=== PATIENT | female | born 1950 | race Caucasian/White ===

== ENCOUNTER 2019-04-24 18:02 | Inpatient (IN) | payer MEDICAID ==
[~2019-04-24] VITALS: Ht 162.6 cm; Wt 65.8 kg
[2019-04-24 18:17] VITALS: BP 129/80
--- NOTE | 2019-04-24 18:20 | NUR ---
PT TRIAGED, SENT BACK TO LOBBY AWAITING FOR BED
--- NOTE | 2019-04-24 18:34 | NUR ---
PT RETURNED FROM CT VIA W/C TO LOBBY
[2019-04-24 19:00] LABS: BASOPHILS # (AUTO) 0.1 K/uL (0.00-0.22); BASOPHILS % (AUTO) 0.9 % (0.0-2.0); EOSINOPHILS # (AUTO) 0.1 K/uL (0-0.4); HEMATOCRIT 36.6 % (36-48); HEMOGLOBIN 12.3 g/dL (12.0-16.0); LYMPHOCYTES # (AUTO) 1.8 K/uL (2.5-16.5); LYMPHOCYTES % (AUTO) 27.4 % (20.5-51.1); MEAN CORPUSCULAR HEMOGLOBIN 29 pg (27-31); MEAN CORPUSCULAR HGB CONC 34 g/dL (33-37); MEAN CORPUSCULAR VOLUME 87.1 fL (80-94); MONOCYTES # (AUTO) 0.4 K/uL (0.8-1.0); MONOCYTES % (AUTO) 5.7 % (1.7-9.3); NEUTROPHILS # (AUTO) 4.2 K/uL (1.8-7.7); PLATELET COUNT (AUTO) 262 K/uL (140-450); RED CELL DISTRIBUTION WIDTH 13.3 % (11.6-13.7); WHITE BLOOD COUNT (AUTO) 6.6 K/uL (4.8-10.8)
--- NOTE | 2019-04-24 19:11 | NUR ---
PT AMBULATED TO BED 7 WITH FAMILY MEMBER
[2019-04-24 19:15] LABS: ALBUMIN 3.8 g/dL (3.4-5.0); ANION GAP 7.8 (8-16); CARBON DIOXIDE 30.2 mmol/L (21-32); CREATININE 0.8 mg/dL (0.6-1.3); TOTAL BILIRUBIN 0.3 mg/dL (0.0-1.0)
[2019-04-24 19:21] LABS: APPEARANCE,URINE CLEAR (CLEAR); BILIRUBIN,URINE NEGATIVE (NEGATIVE); BLOOD, URINE NEGATIVE (NEGATIVE); COLOR,URINE YELLOW (YELLOW); LEUKOCYTE ESTERASE ,URINE NEGATIVE (NEGATIVE); NITRITE, URINE NEGATIVE (NEGATIVE); PH,URINE 5.5 (5.0-9.0); UGLUCOSE NEGATIVE (NEGATIVE)
[2019-04-24] MEDS ORDERED: DICYCLOMINE HCL LIQUID 20 MG, ALUMINUM HYD/MAG/SIMETHICONE 30 ML, LIDOCAINE VISCOUS 2% ... PO ONE ×3 (19:30)
[2019-04-24] MEDS ORDERED: ACETAMINOPHEN 325 MG TAB PO ONE (19:30)
[2019-04-24] MEDS ORDERED: ONDANSETRON 4 MG ODT PO ONE (19:30)
[2019-04-24] MEDS ORDERED: DICYCLOMINE HCL LIQUID 10 MG/5 ML UDC ONE (19:52)
[2019-04-24] MEDS ORDERED: ALUMINUM HYD/MAG/SIMETHICONE 30 ML UDC ONE (19:52)
[2019-04-24] MEDS ORDERED: LIDOCAINE VISCOUS 2% 20 ML UDC ONE (19:52)
--- NOTE | 2019-04-24 20:00 | NUR ---
US AT BEDSIDE.
--- NOTE | 2019-04-24 20:00 | NUR ---
69 Y/O FEMALE C/O EPIGASTRIC PAIN X 1730 TODAY. RATES PAIN 8/0 AND DESCRIBES IT BURNING. ABD IS SOFT, ROUND, ACTIVE BS, TENDERNESS ON EPIGASTRIC REGION. VSS. A&OX4. STEADY GAIT. NO DISTRESS NOTED. NKA. PMH: DM, HTN.
[2019-04-24] MEDS ORDERED: NACL 0.9% 1,000 ML IV ONE (21:00)
[2019-04-24] MEDS ORDERED: metroNIDAZOLE 500 MG/NS PREMIX 100 ML IV ONE (21:00)
[2019-04-24] MEDS ORDERED: NACL 0.9% 1,000 ML IV SCH (21:11)
[2019-04-24] MEDS ORDERED: MORPHINE SULFATE 2 MG/ML SYR IVP PRN (21:15)
[2019-04-24] MEDS ORDERED: ACETAMINOPHEN 325 MG TAB PO PRN (21:15)
[2019-04-24] MEDS ORDERED: ONDANSETRON 4 MG/2 ML VIAL IM/IVP PRN (21:15)
[2019-04-24] MEDS ORDERED: DOCUSATE SODIUM 100 MG GELCAP PO PRN (21:15)
[2019-04-24] MEDS ORDERED: INSULIN LISPRO SLIDING SCALE 100 UNITS/ML VIAL SUBQ PRN (21:20)
[2019-04-24] MEDS ORDERED: DEXTROSE 50% 50 ML SYR IVP PRN (21:20)
[2019-04-24] MEDS ORDERED: cefTRIAXone 1,000 MG VIAL ONE (21:23)
[2019-04-24] MEDS ORDERED: METF1000 PO (21:27)
--- NOTE | 2019-04-24 21:56 | NUR ---
XR AT BEDSIDE.
[2019-04-24 22:20] VITALS: BP 118/61
--- NOTE | 2019-04-24 22:20 | NUR ---
Patient will be admitted to care of DR. GALLEGOS. Admited to M/S. Will go to room 105A. Belongings list completed. Report to TANYA NATHAN.
--- NOTE | 2019-04-24 22:20 | NUR ---
Admitted from ER TO MED SURGICAL UNIT, with chief complaint of ABDOMINAL PAIN THAT STARTED YESTERDAY 5/, ON AND OFF. 69 y/o ,Female, Cooperative, AWAKE, A/OX4, RESPIRATION EVEN AND UNLABORED. IVPB OF FLAGYL INFUSING, RIGHT HAND G20. ABLE TO AMBULATE BY HERSELF. HEAD TO TOE ASSESSMENT DONE WITH TANYA SANTIZO SKIN IS INTACT. PLAN OF CARE FOR THE SHIFT DISCUSSED. VERBALIZED UNDERSTANDING. NPO EXCEPT MEDS. DENIES PAIN 0/10.oriented to call light, bed, phone,television, bathroom, smoking policy,visiting hours, procedures, ID bracelet on. Belongings list checked.
--- NOTE | 2019-04-24 22:21 | NUR ---
Admitted from , with chief complaint of ABDOMINAL PAIN , 69 y/o ,Female, , oriented to call light, bed, phone,television, bathroom, smoking policy, visiting hours, procedures, ID bracelet on. Belongings list checked. Addendum: 04/24/19 at 2345 by Marilou Ceballos RN PLEASE DISREGARD PREVIOUS ENTRY. Patient's Plan of Care was discussed and reviewed with LEOBARDO:VENITA. PT IS STABLE. DENIES ANY PAIN AT THIS TIME. DX:EARLY CHOLECYSTITIS C/C ABD PAIN WHICH STARTED YESTERDAY 04/22. CALL LIGHT IS WITHIN REACH. WILL CONTINUE TO MONITOR.
[2019-04-24 22:39] LABS: PROTHROMBIN TIME 10.3 secs (10.8-13.4)
[2019-04-24 23:15] LABS: FREE T4 (FREE THYROXINE) 1.23 ng/dL (0.76-1.46); MAGNESIUM 1.6 mg/dL (1.8-2.4); PHOSPHORUS 3.9 mg/dL (2.5-4.9); THYROID STIMULATING HORMONE 1.62 uIU/mL (0.34-3.74)
[2019-04-24] MEDS: DEXT 5% / NACL 0.9% 500 ML IV SCH (23:18)
--- NOTE | 2019-04-25 | NUR ---
SLEEPING COMFORTABLY IN BED.
--- NOTE | 2019-04-25 02:00 | NUR ---
STILL SLEEPING COMFORTABLY IN BED.
[2019-04-25 04:00] VITALS: BP 114/60
--- NOTE | 2019-04-25 04:00 | NUR ---
NO COMPLAINT OF PAIN, VS STABLE.
[2019-04-25] MEDS ORDERED: cefTRIAXone 1,000 MG VIAL ONE (05:11)
--- NOTE | 2019-04-25 06:00 | NUR ---
ASSISTED TO GO TO BR TO VOID, BACK TO BED AFTER VOIDING. HUNGARIAN READING REGARDING LAP CHOLECYSTECTOMY GIVE TO PATIENT TO READ.
[2019-04-25] MEDS: metroNIDAZOLE 500 MG/NS PREMIX 100 ML IV SCH ×2 (06:09→13:25)
[2019-04-25] MEDS: DEXT 5% / NACL 0.9% 500 ML IV SCH (06:35)
[2019-04-25] MEDS ORDERED: DEXT 5% /NACL 0.9% 1,000 ML IV SCH (07:07)
--- NOTE | 2019-04-25 07:14 | NUR ---
CONDITION REMAIN STABLE. ENDORSED TO AM SHIFT NURSE FOR CONTINUITY OF CARE.
--- NOTE | 2019-04-25 07:15 | NUR ---
RECEIVED PATIENT FROM CONCRETE POURING SUPERVISOR RETAIL ASSISTANT MANAGERVENITA [place]. PATIENT IS AWAKE, SWAZI SPEAKING ONLY. RESPIRATIONS EVEN AND UNLABORED, ROOM AIR. MED SURG. VISIBLE CHEST RISE NOTED. DENIES CHEST PAIN. ABDOMEN SOFT, AND NONTENDER. SKIN WARM, DRY, AND INTACT. IV IN THE RIGHT AC G20 RUNNING NS AT 60 ML/HR. IV PATENT AND FLUSHING WELL. PATIENT IS AMBULATORY. HAS SCHEDULED LAP GRICELDA AT 1525. HIDA SCAN IS ALSO SCHEDULED. BED IN LOW POSITION. CALL LIGHT IS WITHIN REACH. WILL CONTINUE TO MONITOR.
[2019-04-25 07:25] LABS: BASOPHILS % (AUTO) 0.6 % (0.0-2.0); EOSINOPHILS # (AUTO) 0.1 K/uL (0-0.4); EOSINOPHILS % (AUTO) 1.7 % (0.0-4.0); HEMATOCRIT 31.4 % (36-48); HEMOGLOBIN 10.6 g/dL (12.0-16.0); LYMPHOCYTES # (AUTO) 1.5 K/uL (2.5-16.5); LYMPHOCYTES % (AUTO) 29.5 % (20.5-51.1); MEAN CORPUSCULAR HEMOGLOBIN 29 pg (27-31); MEAN CORPUSCULAR HGB CONC 34 g/dL (33-37); MEAN CORPUSCULAR VOLUME 86.6 fL (80-94); MONOCYTES # (AUTO) 0.4 K/uL (0.8-1.0); MONOCYTES % (AUTO) 7.5 % (1.7-9.3); NEUTROPHILS # (AUTO) 3.1 K/uL (1.8-7.7); NEUTROPHILS % (AUTO) 60.7 % (42.2-75.2); PLATELET COUNT (AUTO) 212 K/uL (140-450); RED BLOOD CELL COUNT(AUTO) 3.63 MIL/uL (4.20-5.40); RED CELL DISTRIBUTION WIDTH 13.4 % (11.6-13.7); WHITE BLOOD COUNT (AUTO) 5.1 K/uL (4.8-10.8)
[2019-04-25 07:29] LABS: CHOL/HDL RATIO 2.2 (1-4.5)
[2019-04-25] MEDS: BLOOD GLUCOSE MONITORING 1 DEV DEV FS SCH ×4 (07:30→20:52)
--- NOTE | 2019-04-25 07:46 | NUR ---
PATIENT IS OFF UNIT FOR HIDA SCAN VIA WHEELCHAIR.
[2019-04-25 08:00] VITALS: BP 132/66
[2019-04-25] MEDS: metFORMIN 500 MG TAB PO SCH ×2 (08:00→17:51)
[2019-04-25] MEDS ORDERED: MAG SULF 2000 MG/WATER PREMIX 100 ML IV SCH (08:00)
[2019-04-25 08:43] LABS: ANION GAP 11.9 (8-16); CARBON DIOXIDE 26.1 mmol/L (21-32); CREATININE 0.6 mg/dL (0.6-1.3)
[2019-04-25 08:51] LABS: BARBITURATE, URINE NEGATIVE ng/ml (NEG <=200); BENZODIAZEPINE, URINE NEGATIVE ng/mL (NEG <=200); CANNABINOID, URINE NEGATIVE ng/mL (NEG <=50); COCAINE, URINE NEGATIVE ng/mL (NEG <=300)
[2019-04-25 08:52] LABS: OPIATE, URINE NEGATIVE ng/mL (NEG <=2000); PHENCYCLIDINE SCREEN,URINE NEGATIVE ng/mL (NEG <=25)
[2019-04-25] MEDS: LACTOBACILLUS RHAMNOSUS GG 1 EACH CAP PO SCH (09:00)
[2019-04-25] MEDS ORDERED: MORPHINE SULFATE 2 MG/ML SYR ONE (09:02)
--- NOTE | 2019-04-25 09:12 | NUR ---
DISCHARGE PLANNING: THIS IS A 69 Y/O FEMALE PATIENT FROM HOME, WHO CAME IN DUE TO ABDOMINAL PAIN. PAST MEDICAL HISTORY INCLUDE DIABETES, GERD AND HTN. INITIAL DIAGNOSIS OF EARLY CHOLECYSTITIS. CURRENT LABS INCLUDE WBC 5.1, H/H 10.6/31.4, NA/K 144/4.0, BUN/CREA 20/0.6, MAG 1.7. UDS NEGATIVE. ON ROCEPHIN. CT ABD/PELVIS CHOLELITHIASIS, ATROPHIC PANCREAS AND CALCIFIED PLEURAL PLAQUES OF THE LEFT LOWER CHEST. ABDOMINAL US SHOWED ACUTE CHOLECYSTITIS. SURGICAL CONSULT IN PLACE. HIDA SCAN IN PROCESS. DC PLAN BACK TO HOME ONCE STABLE.
[2019-04-25] MEDS ORDERED: MORPHINE SULFATE 2 MG/ML SYR IVP SCH (09:30)
--- NOTE | 2019-04-25 09:30 | NUR ---
GIVEN MORPHINE FOR PATIENT'S SCHEDULED HIDA SCAN.
--- NOTE | 2019-04-25 11:14 | NUR ---
GIVEN METFORMIN AND PROBIOTIC PO. HANG MAG SULFATE FOR MAG LEVEL 1.6. GIVEN MEDICATION EDUCATION. BED IN LOW POSITION. CALL LIGHT IS WITHIN REACH. WILL CONTINUE TO MONITOR
--- NOTE | 2019-04-25 11:20 | NUR ---
PATIENT'S DAUGHTER SIGNED CONSENT FOR LAP GRICELDA. INFORMED TO ASK SURGEON IF THEY HAVE ANY QUESTIONS. VERBALIZED UNDERSTANDING.
[2019-04-25] MEDS ORDERED: MAGNESIUM OXIDE 400 MG TAB PO SCH (12:23)
--- NOTE | 2019-04-25 12:47 | NUR ---
PATIENT IS OFF UNIT FOR SURGERY Addendum: 04/25/19 at 1502 by Princess Jinny Brooks RN WRONG TIME
--- NOTE | 2019-04-25 13:35 | NUR ---
HANG FLAGYL VIA IVPB. GIVEN MAX OX PO. GIVEN MEDICATION EDUCATION. WILL CONTINUE TO MONITOR
--- NOTE | 2019-04-25 13:47 | NUR ---
PATIENT IS OFF UNIT FOR SURGERY
[2019-04-25] MEDS ORDERED: ONDANSETRON 4 MG/2 ML VIAL ONE (15:00)
[2019-04-25] MEDS ORDERED: KETOROLAC 30 MG/ML VIAL ONE (15:00)
[2019-04-25] MEDS ORDERED: DEXAMETHASONE 4 MG/ML VIAL ONE (15:00)
[2019-04-25] MEDS ORDERED: ROCURONIUM 50 MG/5 ML VIAL IV ONE (15:00)
[2019-04-25] MEDS ORDERED: NEOSTIGMINE 1:1000 10 MG/10 ML VIAL ONE (15:00)
[2019-04-25] MEDS ORDERED: MEPERIDINE 25 MG/ML SYR ONE (15:00)
[2019-04-25] MEDS ORDERED: SEVOFLURANE 250 ML BTL INH ONE (15:00)
[2019-04-25] MEDS ORDERED: MIDAZOLAM 2 MG/2 ML VIAL ONE (15:00)
[2019-04-25] MEDS ORDERED: SUCCINYLCHOLINE CHLORIDE 200 MG/10 ML VIAL IVP ONE (15:00)
[2019-04-25] MEDS ORDERED: PROPOFOL 200 MG/20 ML VIAL IV ONE (15:00)
[2019-04-25] MEDS ORDERED: fentaNYL 0.05 MG/ML VIAL ONE (15:00)
[2019-04-25] MEDS ORDERED: GLYCOPYRROLATE 0.2 MG/ML VIAL ONE (15:00)
[2019-04-25] MEDS: BUPIVACAINE-MPF 0.25% 30 ML VIAL INJ ONE ×2 (15:43→15:53)
[2019-04-25] MEDS: LIDOCAINE 1% 500 MG/50 ML VIAL ONE ×2 (15:43→17:47)
[2019-04-25] MEDS: NACL 0.9% 1,000 ML IV SCH (15:58)
[2019-04-25] MEDS ORDERED: diphenhydrAMINE 50 MG/ML VIAL IVP PRN (16:00)
[2019-04-25] MEDS ORDERED: BLOOD GLUCOSE MONITORING 1 DEV DEV FS ONE (16:00)
[2019-04-25] MEDS ORDERED: MEPERIDINE 25 MG/ML SYR IVP PRN (16:00)
[2019-04-25] MEDS ORDERED: HYDROmorphone 1 MG/ML AMP IVP PRN ×2 (16:00→17:30)
[2019-04-25] MEDS ORDERED: ONDANSETRON 4 MG/2 ML VIAL IVP PRN (16:00)
[2019-04-25] MEDS ORDERED: SIMETHICONE 80 MG TAB.CHEW PO PRN (17:30)
--- NOTE | 2019-04-25 17:40 | NUR ---
PATIENT IS BACK FROM SURGERY. WILL CHECK POSTOP VS. PATIENT DENIES PAIN. 4 BANDAGES NOTED IN THE ABDOMEN.
[2019-04-25] MEDS: DOCUSATE SODIUM 100 MG GELCAP PO SCH ×2 (17:51→20:52)
--- NOTE | 2019-04-25 17:52 | NUR ---
PER OR NURSEALEKSANDRA, SHE CHECKED BLOOD SUGAR. 167. ANESTHESIOLOGIST TOLD HER NOT TO GIVE INSULIN COVERAGE
--- NOTE | 2019-04-25 18:02 | NUR ---
PT RETURNED FROM PROCEDURE, IS PERFORMED, PT IN PAIN, WILL CONTINUE TO MONITOR, INDORSE TO NOC.
[2019-04-25] MEDS: PIPERACILLIN/TAZOBACTAM 3.375 GM in DEXTROSE 5% 50 ML IV SCH (18:15)
--- NOTE | 2019-04-25 18:19 | NUR ---
HANG ZOSYN VIA IVPB. EDUCATED PATIENT REGARDING MEDICATION. WILL CONTINUE TO MONITOR
--- NOTE | 2019-04-25 18:36 | NUR ---
GIVEN DILAUDID FOR 8/10 PAIN ABDOMEN. EXPLAINED MEDICATION AND SIDE EFFECTS. BED IN LOW POSITION. CALL LIGHT IS WITHIN REACH. WILL CONTINUE TO MONITOR
--- NOTE | 2019-04-25 19:21 | NUR ---
ENDORSED PATIENT TO THE SALES NEGOTIATOR NURSE FOR CONTINUITY OF CARE. PATIENT IS IN STABLE CONDITION.
--- NOTE | 2019-04-25 19:22 | NUR ---
RECD. RESTING IN BED, AWAKE, A/OX4, RESPIRATION EVEN AND UNLABORED. IV OF NS AT 100 ML/HR INFUSING. S/P LAP CHOLECYSTECTOMY, INCISION IN THE ABDOMEN (4) COVERED WITH BAND AID, ALL DRY AND INTACT. ON CLEAR LIQUID DIET. PLAN OF CARE FOR THE SHIFT DISCUSSED WITH PATIENT AND FAMILY. VERBALIZED UNDERSTANDING. PAIN IN THE ABDOMEN 03/01, STATED TOLERABLE.
--- NOTE | 2019-04-25 19:47 | NUR ---
Patient's Plan of Care was discussed and reviewed with PROVISIONING ANALYST: VENITA VASQUEZ
[2019-04-25 20:00] VITALS: BP 121/63
--- NOTE | 2019-04-25 20:52 | NUR ---
DUE PO MEDICATIONS GIVEN.
--- NOTE | 2019-04-25 21:30 | NUR ---
TOLERATED CLEAR LIQUID DIET.
--- NOTE | 2019-04-26 | NUR ---
ASSISTED OUT OF BED TO GO TO BR TO VOID. BACK TO BED AFTER VOIDING, GAIT STEADY.
[2019-04-26] MEDS: PIPERACILLIN/TAZOBACTAM 3.375 GM in DEXTROSE 5% 50 ML IV SCH ×4 (00:18→17:28)
[2019-04-26] MEDS: IBUPROFEN 600 MG TAB PO PRN ×3 (00:28→21:24)
[2019-04-26] MEDS: NACL 0.9% 1,000 ML IV SCH ×3 (01:38→14:37)
[2019-04-26 04:00] VITALS: BP 98/45
--- NOTE | 2019-04-26 04:00 | NUR ---
SLEEPING COMFORTABLY IN BED.
[2019-04-26] MEDS: BLOOD GLUCOSE MONITORING 1 DEV DEV FS SCH ×4 (06:39→21:19)
[2019-04-26 07:13] LABS: BASOPHILS # (AUTO) 0.1 K/uL (0.00-0.22); BASOPHILS % (AUTO) 0.8 % (0.0-2.0); EOSINOPHILS % (AUTO) 0.1 % (0.0-4.0); HEMATOCRIT 32.7 % (36-48); HEMOGLOBIN 10.6 g/dL (12.0-16.0); LYMPHOCYTES % (AUTO) 12.9 % (20.5-51.1); MEAN CORPUSCULAR HEMOGLOBIN 29 pg (27-31); MEAN CORPUSCULAR HGB CONC 32 g/dL (33-37); MEAN CORPUSCULAR VOLUME 90.2 fL (80-94); MONOCYTES # (AUTO) 0.5 K/uL (0.8-1.0); MONOCYTES % (AUTO) 6.8 % (1.7-9.3); NEUTROPHILS # (AUTO) 5.9 K/uL (1.8-7.7); NEUTROPHILS % (AUTO) 79.4 % (42.2-75.2); PLATELET COUNT (AUTO) 209 K/uL (140-450); RED BLOOD CELL COUNT(AUTO) 3.63 MIL/uL (4.20-5.40); RED CELL DISTRIBUTION WIDTH 14.1 % (11.6-13.7); WHITE BLOOD COUNT (AUTO) 7.5 K/uL (4.8-10.8)
--- NOTE | 2019-04-26 07:15 | NUR ---
CONDITION REMAIN STABLE. ENDORSED TO AM SHIFT NURSE FOR CONTINUITY OF CARE.
[2019-04-26 07:22] LABS: ANION GAP 9.5 (8-16); CARBON DIOXIDE 26.6 mmol/L (21-32); CREATININE 0.7 mg/dL (0.6-1.3); POTASSIUM 4.1 mmol/L (3.5-5.1)
--- NOTE | 2019-04-26 07:48 | NUR ---
RECEIVED REPORT FROM CIGARETTE SELLER RN FOR CONTINUITY OF CARE. PT IS AAOX4, COOPERATIVE AND ABLE TO COMMUNICATE. PT IS [place] SPEAKING. DENIES PAIN AND SOB. ALL NEEDS MET. WILL CONTINUE TO ROUND ON PT. BED IN LOW POSITION, CALL LIGHT WITHIN REACH.
[2019-04-26 08:00] VITALS: BP 95/51
--- NOTE | 2019-04-26 08:47 | NUR ---
ADMIN MORNING MEDS. PT TOLERATED WELL. ALL NEEDS MET.
[2019-04-26] MEDS: CALCIUM CARB/VIT-D 500 MG/200 IU 1 TAB PO SCH (09:00)
[2019-04-26] MEDS: DOCUSATE SODIUM 100 MG GELCAP PO SCH ×2 (09:16→21:17)
[2019-04-26] MEDS: LACTOBACILLUS RHAMNOSUS GG 1 EACH CAP PO SCH (09:16)
[2019-04-26] MEDS: metFORMIN 500 MG TAB PO SCH ×2 (09:16→17:28)
--- NOTE | 2019-04-26 11:47 | NUR ---
PT RESTING ALL NEEDS MET.
[2019-04-26] MEDS ORDERED: CALC-55 PO (12:04)
[2019-04-26] MEDS ORDERED: DOCU-299 PO (12:04)
[2019-04-26] MEDS ORDERED: LACT10CA PO (12:04)
[2019-04-26] MEDS ORDERED: IBUP-2213 PO (12:04)
[2019-04-26] MEDS ORDERED: SIME80CT27 PO (12:04)
[2019-04-26] MEDS ORDERED: CIPR500T4 PO (12:04)
[2019-04-26] MEDS ORDERED: HYDR-5122 PO (12:09)
--- NOTE | 2019-04-26 13:27 | NUR ---
PT RESTING ALL NEEDS MET.
--- NOTE | 2019-04-26 15:47 | NUR ---
PT HAVING SNACK IN BED. ALL NEEDS MET.
--- NOTE | 2019-04-26 19:20 | NUR ---
RECEIVED REPORT FORM BILLY MARTÍNEZ DAYSHIFT NURSE AT BEDSIDE FOR CONTINUITY OF CARE, PT IN STABLE CONDITION.
[2019-04-26 20:00] VITALS: BP 137/67
--- NOTE | 2019-04-26 20:00 | NUR ---
PT SITTING UP IN BED AOX4, IV SITE ON RAC RUNNING NORMAL SALINE AT 60MLS/HR. PT HAS 4 BANDAID COVERED SURGICAL SITES. PT HAS NO C/O VOICED AT THIS TIME V/S FOLLOWS: T 97.6 P 72 R 18 B/P 137/62 02 95% ON ROOM AIR. ALL UNIVERSAL PRECAUTIONS IN PLACE.
--- NOTE | 2019-04-26 20:38 | NUR ---
ENDORSED PT TO AFRICAN STUDIES PROFESSOR FOR CONTINUITY OF CARE. PT IN STABLE CONDITION.
--- NOTE | 2019-04-26 21:30 | NUR ---
PT SITING UP IN BED SHE IS AOX4 AND FINNISH SPEAKING WITH FAMILY AT BEDSIDE. IV SITE ON RAC 20 GUAGE INTACT, FLUSHED PATENT AND ASYMPTOMATIC RUNNING NORMAL SALINE AT 60MLS/HR. PT SKIN INTACT EXCEPT FOR 4 SMALL POST OP WOUND SITES COVERED WITH LARGE BAND AIDS. BAND AIDS ARE INTACT WITH ONLY MINIMAL DRAINAGE ON MIDDLE LOWER BANDAID.PT C/O OF 2/10 PAIN IN LOWER ABDOMEN, SHE WAS GIVEN PO PRN MOTRIN FOR MILD PAIN. FINGERSTICK IS 129, NO HUMALOG COVERAGE REQUIRED. PT WAS GIVEN ORDERED [place] MEDICATION EDUCATION WAS PROVIDED AT BEDSIDE. PT VERBALIZED UNDERSTANDING. ALL UNIVERSAL FALLS PRECAUTIONS IN PLACE.
[2019-04-27] VITALS: BP 118/63
--- NOTE | 2019-04-27 00:35 | NUR ---
PT IN BED C/O NECK PAIN 04/29 GIVEN PO/PRN TYLENOL, ZOSYN DOUG EDUCATION REGARDING MEDICATION INCLUDING SIDE EFFECTS PROVIDED TO PT AT BEDSIDE, PT VERBALIZED UNDERSTANDING. ALL UNIVERSAL PRECAUTIONS IN PLACE.
[2019-04-27] MEDS: PIPERACILLIN/TAZOBACTAM 3.375 GM in DEXTROSE 5% 50 ML IV SCH ×2 (00:40→05:54)
--- NOTE | 2019-04-27 02:00 | NUR ---
PT IN BED ASLEEP IV SITE INTACT AND RUNNING ORDERED.
--- NOTE | 2019-04-27 03:30 | NUR ---
DUE TO CHANGE OF ASSIGNMENT, REPORT GIVEN TO HERNESTO MARTÍNEZ DAYSHIFT NURSE AT BEDSIDE FOR CONTINUITY OF CARE, PT IN STABLE CONDITION.
--- NOTE | 2019-04-27 03:32 | NUR ---
RECEIVED PT FROM DANELLE RN PT PERUVIAN SPEAKER AAOX4 AMBULATORY S/P LAP GRICELDA 4 SMALL INSICION ON ABD , IV ON RT AC INFUSING WELL NOT DISTRESS NOTED INITIAL ASSESSMENT DONE
--- NOTE | 2019-04-27 05:11 | NUR ---
PT RESTING ON BED NOT DISTRESS NOTED IV ON RT AC INFUSING WELL
[2019-04-27] MEDS: BLOOD GLUCOSE MONITORING 1 DEV DEV FS SCH (05:58)
--- NOTE | 2019-04-27 06:00 | NUR ---
BLOOD SUGAR TEST 101
[2019-04-27 07:00] LABS: MAGNESIUM 1.7 mg/dL (1.8-2.4)
--- NOTE | 2019-04-27 07:00 | NUR ---
PT IS ENDORSED TO DAY SHIFT NURSE FOR CONTINUE OF CARE
[2019-04-27 07:02] LABS: BASOPHILS # (AUTO) 0.1 K/uL (0.00-0.22); EOSINOPHILS # (AUTO) 0.2 K/uL (0-0.4); EOSINOPHILS % (AUTO) 3.3 % (0.0-4.0); HEMOGLOBIN 10.6 g/dL (12.0-16.0); LYMPHOCYTES # (AUTO) 1.5 K/uL (2.5-16.5); LYMPHOCYTES % (AUTO) 27.3 % (20.5-51.1); MEAN CORPUSCULAR HEMOGLOBIN 30 pg (27-31); MEAN CORPUSCULAR HGB CONC 33 g/dL (33-37); MEAN CORPUSCULAR VOLUME 89.7 fL (80-94); MONOCYTES # (AUTO) 0.4 K/uL (0.8-1.0); MONOCYTES % (AUTO) 7.5 % (1.7-9.3); NEUTROPHILS # (AUTO) 3.3 K/uL (1.8-7.7); NEUTROPHILS % (AUTO) 60.9 % (42.2-75.2); PLATELET COUNT (AUTO) 201 K/uL (140-450); RED BLOOD CELL COUNT(AUTO) 3.57 MIL/uL (4.20-5.40); RED CELL DISTRIBUTION WIDTH 14.1 % (11.6-13.7); WHITE BLOOD COUNT (AUTO) 5.4 K/uL (4.8-10.8)
--- NOTE | 2019-04-27 07:10 | NUR ---
RECEIVED BEDSIDE REPORT FROM OUTBOUND SALES ADVISOR NURSE. PT IS AWAKE AND ALERT IN BED, NO S/S OF ACUTE DISTRESS NOTED, NO SOB. PT ON ROOM AIR, SKIN INTACT ASIDE FROM THE 4 ABD INCISIONS S/P LAP GRICELDA; COVERED BY BANDAGES. IV SITE R AC 20 G INFUSING NS 50 ML/HR. CALL LIGHT IS WITHIN REACH. WILL CONTINUE TO MONITOR.
[2019-04-27 07:23] LABS: ANION GAP 11.1 (8-16); CARBON DIOXIDE 25.6 mmol/L (21-32); CREATININE 0.8 mg/dL (0.6-1.3); POTASSIUM 3.7 mmol/L (3.5-5.1)
[2019-04-27 08:00] VITALS: BP 120/64
[2019-04-27] MEDS: metFORMIN 500 MG TAB PO SCH (09:23)
[2019-04-27] MEDS: LACTOBACILLUS RHAMNOSUS GG 1 EACH CAP PO SCH (09:23)
[2019-04-27] MEDS: CALCIUM CARB/VIT-D 500 MG/200 IU 1 TAB PO SCH (09:23)
[2019-04-27] MEDS: DOCUSATE SODIUM 100 MG GELCAP PO SCH (09:23)
--- NOTE | 2019-04-27 09:26 | NUR ---
AM MEDS ADMINISTERED, PT TOLERATED WELL.
[2019-04-27] MEDS ORDERED: MAGNESIUM OXIDE 400 MG TAB PO SCH (10:30)
--- NOTE | 2019-04-27 11:30 | NUR ---
PT'S AND SON HERE FOR DC TEACHING. THEY WERE GIVEN DC INSTRUCTIONS WELL PRESCI Addendum: 04/27/19 at 1131 by Darcy Santana RN PT'S AND SON HERE FOR DC TEACHING. THEY WERE GIVEN DC INSTRUCTIONS WELL PRESCRIPTION AND FOLLOW-UP INFORMATION. THEY VERBALIZED UNDERSTANDING OF TEACHING. IV SITE AND WRIST BAND WERE REMOVED. PT'S VACCINES ARE UP TO DATE. PT IN STABLE CONDITION AND LEFT WITH ALL HER BELONGINGS.
== END 2019-04-27 11:30 | disposition home or self-care (01) | DRG 263 ==
LOC: MED 18:02 → EDBD 18:02 → MTU 21:11
PROVIDERS: ADMIT General Practice; ATTEND General Practice
PROC: 0DNW4ZZ Release Peritoneum, Percutaneous Endoscopic Approach (ICD-10-PCS; 2019-04-25)
PROC: 0FT44ZZ Resection of Gallbladder, Percutaneous Endoscopic Approach (ICD-10-PCS; principal; 2019-04-25 15:25)
DX: K80.13 Calculus of gallbladder with acute and chronic cholecystitis with obstruction (principal); D68.59 Other primary thrombophilia; E11.9 Type 2 diabetes mellitus without complications; K66.0 Peritoneal adhesions (postprocedural) (postinfection); Q44.1 Other congenital malformations of gallbladder; K21.9 Gastro-esophageal reflux disease without esophagitis; E83.42 Hypomagnesemia; Z79.84 Long term (current) use of oral hypoglycemic drugs
CPT/HCPCS: 36415; 71045; 76705; 78445; 80048; 80053; 80305; 81003; 81025; 82150; 82374; 82948; 83036; 83690; 83735; 83880; 84100; 84134; 84439; 84443; 84484; 85025; 85610; 85730; 87040; 87070; 87075; 87081; 87205; 88304; 96365; 96368; 99285; A9510; J0330; J0696; J1100; J1170; J1885; J2001; J2175; J2250; J2270; J2405; J2543; J2704; J2710; J3010; J3475; J3490; J7030; J7060; Q0092; Q0162